=== PATIENT | male | born 1980 | race Caucasian/White ===

== ENCOUNTER 2016-10-10 00:13 | Emergency (ER) | payer OTHER ==
[2016-10-10] MEDS ORDERED: PROPARACAINE 0.5% 15 ML OPHT DROP OP ONE (00:23)
[2016-10-10] MEDS ORDERED: FLUORESCEIN SODIUM 1 MG STRIP OP ONE (00:39)
--- NOTE | 2016-10-10 00:52 | EDPHY ---
H & P Stated Complaint: L eye pain, friend visusalized object in eye, no vision changes Time Seen by Provider: 10/10/16 00:33 HPI/ROS: Chief Complaint: Left eye foreign body HPI: 36-year-old male was rock climbing today when he felt a piece of dirt get in his left eye. He is at the sensation of irritation in it since. He is irrigated without any relief. He had a friend looking to noted what appears to be foreign body in from his eye. Does not wear contact lenses. No discharge. No vision changes. ROS: 10 point Review of Systems is negative except as noted in the HPI. PMH: None Medications: None Allergies: None Social History: No smoking, no alcohol, no recreational drug use Family History: non-contributory Physical Exam: General: Awake, alert, no acute distress Eye Exam EOM: Intact OU Visual Hernández: Intact OU Pupil: Equal, round and reactive to light and accomodation OU External: Lids, lashes and margins normal OU Slit Lamp; there is a corneal foreign body in the central inferior 6 o' clock position, there is no rust ring Iris normal, Anterior chambers clear without cells or flare, no hyphema, normal angles - Personal History Current Tetanus/Diphtheria Vaccine: Yes Current Tetanus Diphtheria and Acellular Pertussis (TDAP): Yes - Medical/Surgical History Hx Asthma: No Hx Chronic Respiratory Disease: No Hx Diabetes: No Hx Cardiac Disease: No Hx Renal Disease: No Hx Cirrhosis: No Hx Alcoholism: No Hx HIV/AIDS: No Hx Splenectomy or Spleen Trauma: No Other PMH: denies - Social History Smoking Status: Never smoked Constitutional: Initial Vital Signs Heart Rate 61 10/10/16 00:14 Blood Pressure 139/80 H 10/10/16 00:14 O2 Sat (%) 16 L 10/10/16 00:14 O2 Delivery Mode Room Air Allergies/Adverse Reactions: No Known Allergies Allergy (Unverified 10/10/16 00:20) Home Medications: Medication Instructions Recorded OMEPRAZOLE 07/03/10 Medical Decision Making Procedures: Procedure: Foreign body removal from cornea: Anesthesia: Topical. After verbal consent from the patient, an embedded foreign body was removed from the cornea of the left eye. The foreign body was removed manually using a needle using direct visualization. Following removal there was no significant rust ring. There were no complications and the patient tolerated the procedure well. The procedure was performed by myself. - Data Points Medications Given: Discontinued Medications Proparacaine HCl (Alcaine 0.5%) 1 drops OP EDNOW ONE Stop: 10/10/16 00:24 Last Admin: 10/10/16 00:30 Dose: 1 drop Departure - Departure Disposition: Home, Routine, Self-Care Clinical Impression: Corneal foreign body Condition: Good Instructions: Eye Foreign Body (ED) Additional Instructions: Apply erythromycin ointment to the affected eye every 4 hours while awake for the next 3 days. Follow up with Ophthalmology on Wednesday. Referrals: EDUARDA CONTRERAS [Other] - As per Instructions Jaron Harrison MD [Medical Doctor] - As per Instructions
[2016-10-10] MEDS ORDERED: ERYTHROMYCIN 0.5% 1 GM OPHT.OINT EACHEYE ONE (00:53)
[2016-10-10 01:46] VITALS: BP 130/77; PULSE 88; RESP 16; O2SAT 96
== END 2016-10-10 01:46 | disposition home or self-care (01) ==
DX: T15.02XA Foreign body in cornea, left eye, initial encounter (principal); X58.XXXA Exposure to other specified factors, initial encounter; Y93.31 Activity, mountain climbing, rock climbing and wall climbing